=== PATIENT | female | born 1955 | race Caucasian/White ===

== ENCOUNTER → 2016-06-20 | Outpatient (CLI) | payer BC | END | disposition home or self-care (01) | LOC: C.RDSM 14:01 | PROVIDERS: ATTEND Family Medicine | DX: M17.9 Osteoarthritis of knee, unspecified (principal) ==

== ENCOUNTER → 2016-10-28 | Outpatient (CLI) | payer BC ==
--- NOTE | 2016-11-01 14:57 | MAMMOGRAPHY REPORT ---
BILATERAL DIGITAL SCREENING MAMMOGRAM TOMOSYNTHESIS WITH CAD: 10/28/2016 CLINICAL HISTORY: Routine screening. Patient has no complaints. TECHNIQUE: Breast tomosynthesis in addition to standard 2D mammography was performed. Current study was also evaluated with a Computer Aided Detection (CAD) system. COMPARISON: Comparison is made to exams dated: 10/14/2015 mammogram - [facility], 11/28/2014 mammogram, 07/22/2013 mammogram, 07/20/2012 mammogram, 07/11/2011 mammogram, and 06/18/2010 [facility] mogram. BREAST COMPOSITION: There are scattered areas of fibroglandular density in both breasts. FINDINGS: No suspicious masses, calcifications, or areas of architectural distortion are noted in e ither breast. There has been no significant interval change compared to prior exams. There are stab le post surgical changes from bilateral reduction mammoplasty. Bilateral asymmetries and scattered bilateral benign appearing calcifications are stable compared to prior exams. IMPRESSION: ACR BI-RADS CATEGORY 2: BENIGN There is no mammographic evidence of malignancy. A 1 year screening mammogram is recommended. The p atient will receive written notification of the results. Approximately 10% of breast cancers are not detected with mammography. A negative mammographic repor t should not delay biopsy if a clinically suggestive mass is present. Jayshree Cruz M.D. /:10/28/2016 15:45:34 Sample Tester Grinder: Alec SHERWOOD(R)(M), [facility] letter sent: Normal 1/2 BI-RADS Code: ACR BI-RADS Category 2: Benign
== END | disposition home or self-care (01) ==
LOC: C.MAMM 15:16
PROVIDERS: ATTEND Obstetrics & Gynecology
DX: Z12.31 Encounter for screening mammogram for malignant neoplasm of breast (principal)

== ENCOUNTER 2017-08-16 18:28 | Emergency (ER) | payer BC, OTHER ==
[~2017-08-16] VITALS: Ht 157.5 cm; Wt 71.0 kg
[2017-08-16 18:35] VITALS: TEMP 36.5; Ht 157.5 cm; Wt 71.0 kg
--- NOTE | 2017-08-16 19:43 | DIAGNOSTIC IMAGING REPORT ---
CT SCAN OF THE BRAIN WITHOUT IV CONTRAST CLINICAL HISTORY: Fall. Head injury. COMPARISON STUDY: No priors. TECHNIQUE: Unenhanced axial CT scan of the brain is performed from the vertex to the skull base. A dose lowering technique was utilized adhering to the principles of ALARA. CT DOSE: 1002.43 mGy.cm FINDINGS: Brain parenchyma: There are age-related involutional changes noting mild subcortical and periventricular microangiopathic change. There is no hemorrhage, mass effect, or evidence of acute territorial ischemia by CT criteria. Morales-white matter is preserved. No extra-axial fluid collection is seen. Ventricles, sulci, cisterns: Prominent secondary to involutional change. Intracranial vasculature: There is mild atherosclerotic calcification of the cavernous carotid. Calvarium: The skeletal structures are osteopenic. No depressed calvarial fracture is seen. Sinuses and mastoids: The visualized paranasal sinuses are clear. The mastoid air cells are well pneumatized. Orbits: The bony orbits are grossly intact. IMPRESSION: There is no hemorrhage, mass effect, or evidence of acute territorial ischemia by CT criteria. Electronically signed by: Tereso Gaytan M.D. 08/16/2017 7:42 PM Dictated Date/Time: 08/16/2017 7:40 PM
--- NOTE | 2017-08-16 19:59 | DIAGNOSTIC IMAGING REPORT ---
CT SCAN OF THE CERVICAL SPINE CLINICAL HISTORY: Fall. Trauma. COMPARISON STUDY: No priors. TECHNIQUE: CT scan of the cervical spine is performed from the skull base to the upper thoracic spine. Images are reviewed in the axial, sagittal, and coronal planes. IV contrast was not administered for this examination. A dose lowering technique was utilized adhering to the principles of ALARA. CT DOSE: Reported separately under the concurrently performed CT scan of the brain. FINDINGS: Skeletal structures: The skeletal structures are osteopenic. There is no evidence of fracture or subluxation involving the cervical spine. Vertebral body height and alignment are maintained. There is straightening of the cervical lordosis with mild reversal centered at C4-C5. Anterior osteophytes are seen throughout. The odontoid process and lateral masses are intact. The atlantoaxial articulation is preserved noting mild productive degenerative change. The spinous processes appear intact. There is mild to moderate multilevel cervical spondylosis. Uncovertebral and facet arthropathy contribute to neural foraminal stenosis at several levels. Intervertebral discs: There is moderate to advanced disc space narrowing seen from C3 -C4 through C6-C7. There is significant associated endplate sclerosis at these levels. Central canal: Posterior disc osteophyte complexes from C3-C4 through C6-C7 likely contribute to multilevel acquired compromise of the central canal. Soft tissues: The prevertebral and paraspinous soft tissues are within normal limits. Calvarium: The visualized calvarium at the skull base appears intact. Brain parenchyma: Partially visualized brain parenchyma the skull base is within normal limits. Sinuses and mastoids: The visualized paranasal sinuses are clear. The mastoid air cells are well pneumatized. Lung apices: Clear as visualized. IMPRESSION: 1. There is no evidence of fracture or subluxation involving the cervical spine. 2. Osteopenia and cervical spondylosis as above. Electronically signed by: Tereso Gaytan M.D. 08/16/2017 7:58 PM Dictated Date/Time: 08/16/2017 7:55 PM
--- NOTE | 2017-08-16 20:10 | DIAGNOSTIC IMAGING REPORT ---
PA CHEST WITH RIGHT-SIDED RIB SERIES CLINICAL HISTORY: Fall with right-sided chest wall pain. FINDINGS: A PA chest radiograph with 4 additional views may right-sided rib series is obtained. No prior studies are available for comparison at the time of dictation. The there is atherosclerotic calcification of the thoracic aorta. The pulmonary vasculature is noncongested. Nonspecific interstitial thickening is likely chronic. No airspace consolidation or large pleural effusion is identified. No pneumothorax is seen. The skeletal structures are osteopenic. There is no radiographic evidence of acute/distracted right-sided rib fracture on the rib series. The remainder of the bony thorax is grossly intact. Cholecystectomy clips are noted in the right upper quadrant. IMPRESSION: 1. The lungs are clear. 2. There is no radiographic evidence of right-sided rib fracture on the rib series as clinically queried. Electronically signed by: Tereso Gaytan M.D. 08/16/2017 8:09 PM Dictated Date/Time: 08/16/2017 8:07 PM
[2017-08-16] MEDS ORDERED: DIPHTHERIA/TETANUS/PERTUSSIS 0.5 ML SYR/VIAL IM. ONE (20:15)
--- NOTE | 2017-08-16 20:17 | EMERGENCY ROOM VISIT NOTE ---
History First contact with patient: 18:39 Chief Complaint: HEAD INJURY (MINOR) Stated Complaint: HEAD,RIB,KNEE INJURY History of Present Illness The patient is a 62 year old female who presents to the Emergency Room via private vehicle with complaints of "head, rib, knee injury" the patient states that just prior to arrival she was doing running sprints, when she accidentally tripped and fell landing on her right side. She states that this was at a local exercise facility. This occurred around 4-5 PM. She states that there was no loss of consciousness but however she now has pain just above the right eye, headache, right hand pain, and bilateral knee pain as well as right anterior rib pain. She rates her overall pain is a 7/10. It is worse when she leans forward. Only alleviating factor is aspirin that she took prior to arrival. She has had no vomiting. No hemoptysis. No trouble breathing. Review of Systems A complete 6-point Review of Systems was discussed with the patient, with pertinent positives and negatives listed in the History of Present Illness. All remaining Review of Systems questions can be considered negative unless otherwise specified. Past Medical/Surgical History No pertinent Social History Smoking Status: Never Smoker Pt. lives locally Physical Exam Vital Signs Date Time Temp Pulse Resp B/P (MAP) Pulse Ox O2 Delivery O2 Flow Rate FiO2 08/16/17 20:35 53 17 135/75 98 08/16/17 18:35 36.5 58 18 179/89 99 Room Air Physical Exam VITAL SIGNS - Vital signs and nursing notes were reviewed. GENERAL - 62-year-old female appearing her stated age who is in no acute distress. Communicates well with provider and answers questions appropriately. SKIN - Without rashes. Small abrasion to L and R anterior knee. Also small bruising to the palmar aspect of the patient's right proximal hand as well as just above her right eye HEAD - NC/AT. No hu signs or raccoon's eyes. EYES - PERRL with EOMI bilaterally. Sclera anicteric. No hyphema. EARS - No deformities of external structures noted on gross examination bilaterally. No hemotympanum. NOSE - Midline and without cyanosis. No epistaxis or purulent drainage noted. Septum midline without deviation or septal hematoma noted. MOUTH/OROPHARYNX - Without perioral cyanosis. NECK - Neck with FROM. No C-spine tenderness. LUNGS - Chest wall symmetric without accessory muscle use, intercostals retractions, or central cyanosis. Normal vesicular breath sounds CTA B/L. No wheezes, rales, or rhonchi appreciated. CARDIAC - RRR with S1/S2. No murmur, rubs, or gallops appreciated. Minimal tenderness to the right anterior ribs. ABDOMEN - Abdominal contour normal without pulsations or visible masses. BS normoactive all four quadrants. No tenderness, palpable masses, hepatosplenomegaly, or ascites noted. EXTREMITIES - No clubbing or peripheral cyanosis. No pretibial edema present. +5 /5 strength noted in UE/LE bilaterally. NEUROLOGIC - Cranial nerves II through XII grossly intact. Sensory intact to light touch throughout. PSYCH - A&O, and cooperates fully with examiner. Pt is very pleasant and interacts well with examiner. Medical Decision & Procedures ER Provider Diagnostic Interpretation: CT SCAN OF THE BRAIN WITHOUT IV CONTRAST CLINICAL HISTORY: Fall. Head injury. COMPARISON STUDY: No priors. TECHNIQUE: Unenhanced axial CT scan of the brain is performed from the vertex to the skull base. A dose lowering technique was utilized adhering to the principles of ALARA. CT DOSE: 1002.43 mGy.cm FINDINGS: Brain parenchyma: There are age-related involutional changes noting mild subcortical and periventricular microangiopathic change. There is no hemorrhage, mass effect, or evidence of acute territorial ischemia by CT criteria. Morales-white matter is preserved. No extra-axial fluid collection is seen. Ventricles, sulci, cisterns: Prominent secondary to involutional change. Intracranial vasculature: There is mild atherosclerotic calcification of the cavernous carotid. Calvarium: The skeletal structures are osteopenic. No depressed calvarial fracture is seen. Sinuses and mastoids: The visualized paranasal sinuses are clear. The mastoid air cells are well pneumatized. Orbits: The bony orbits are grossly intact. IMPRESSION: There is no hemorrhage, mass effect, or evidence of acute territorial ischemia by CT criteria. Electronically signed by: Tereso Gaytan M.D. 08/16/2017 7:42 PM Dictated Date/Time: 08/16/2017 7:[address] SCAN OF THE CERVICAL SPINE CLINICAL HISTORY: Fall. Trauma. COMPARISON STUDY: No priors. TECHNIQUE: CT scan of the cervical spine is performed from the skull base to the upper thoracic spine. Images are reviewed in the axial, sagittal, and coronal planes. IV contrast was not administered for this examination. A dose lowering technique was utilized adhering to the principles of ALARA. CT DOSE: Reported separately under the concurrently performed CT scan of the brain. FINDINGS: Skeletal structures: The skeletal structures are osteopenic. There is no evidence of fracture or subluxation involving the cervical spine. Vertebral body height and alignment are maintained. There is straightening of the cervical lordosis with mild reversal centered at C4-C5. Anterior osteophytes are seen throughout. The odontoid process and lateral masses are intact. The atlantoaxial articulation is preserved noting mild productive degenerative change. The spinous processes appear intact. There is mild to moderate multilevel cervical spondylosis. Uncovertebral and facet arthropathy contribute to neural foraminal stenosis at several levels. Intervertebral discs: There is moderate to advanced disc space narrowing seen from C3 -C4 through C6-C7. There is significant associated endplate sclerosis at these levels. Central canal: Posterior disc osteophyte complexes from C3-C4 through C6-C7 likely contribute to multilevel acquired compromise of the central canal. Soft tissues: The prevertebral and paraspinous soft tissues are within normal limits. Calvarium: The visualized calvarium at the skull base appears intact. Brain parenchyma: Partially visualized brain parenchyma the skull base is within normal limits. Sinuses and mastoids: The visualized paranasal sinuses are clear. The mastoid air cells are well pneumatized. Lung apices: Clear as visualized. IMPRESSION: 1. There is no evidence of fracture or subluxation involving the cervical spine. 2. Osteopenia and cervical spondylosis as above. Electronically signed by: Tereso Gaytan M.D. 08/16/2017 7:58 PM Dictated Date/Time: 08/16/2017 7:55 PM [~ rep ct add3]] PA CHEST WITH RIGHT-SIDED RIB SERIES CLINICAL HISTORY: Fall with right-sided chest wall pain. FINDINGS: A PA chest radiograph with 4 additional views may right-sided rib series is obtained. No prior studies are available for comparison at the time of dictation. The there is atherosclerotic calcification of the thoracic aorta. The pulmonary vasculature is noncongested. Nonspecific interstitial thickening is likely chronic. No airspace consolidation or large pleural effusion is identified. No pneumothorax is seen. The skeletal structures are osteopenic. There is no radiographic evidence of acute/distracted right-sided rib fracture on the rib series. The remainder of the bony thorax is grossly intact. Cholecystectomy clips are noted in the right upper quadrant. IMPRESSION: 1. The lungs are clear. 2. There is no radiographic evidence of right-sided rib fracture on the rib series as clinically queried. Electronically signed by: Tereso Gaytan M.D. 08/16/2017 8:09 PM Dictated Date/Time: 08/16/2017 8:07 PM Medications Administered Medications (Trade) Dose Ordered Sig/Ariel Route Start Time Stop Time Status Last Admin Dose Admin Diphtheria/ Pertussis/Tetanus Vacc (Adacel Inj) 0.5 ml ONCE ONCE IM. 08/16/17 20:15 08/16/17 20:16 DC 08/16/17 20:30 0.5 ML ED Course Patient was seen and evaluated in room D6. Imaging was performed. No acute fracture, dislocation or emergent process. Regions were bandaged. Tetanus immunization was given. She declined pain medication. She will follow with the family doctor. Medical Decision Patient was seen and evaluated as above. She presents to the status post fall. GCS 15. Review was performed of nursing notes and vital signs. After obtaining a thorough history and physical examination the above work up was performed. CT scan was obtained of the patient's head and C-spine. X-ray was then obtained of the chest, right ribs. She respectfully declined x-rays of the knees and hand. CT scans negative. X-ray negative. She was educated upon incidentals. She is to follow with the family doctor. I suspect contusion multiple sites and a possible concussion. She was given ice and the wounds were bandaged. She appears stable for outpatient management. She was given her tetanus immunization here. The patient was educated upon management, had questions answered prior to discharge, and was discharged home in good condition. In the evaluation and treatment of this patient, the following differential diagnoses were considered: Concussion, Contrecoup Injury, Brain Tumor, Depression, Encephalitis, Hypothyroidism, Meningitis, CVA, TIA, Migraine, Cluster Headache, Intracranial Abnormality, Intracranial Hemorrhage, Subdural Hematoma, Subarachnoid Hemorrhage, Hydrocephalus, Musculoskeletal Strain, Discitis, Cervical Spine Fracture, Cervical Spine Dislocation, Cervical Spine Subluxation, Cervical Spondylosis, Fibromyalgia, Osteoarthritis, Polymyalgia Rheumatica, Psychogenic Pain Disorder, Tumor of Soft Tissue or Spine, Wrist Sprain, Wrist Fracture, Wrist Dislocation, Scapholunate Dissociation, Carpal Fracture, Metacarpal Fracture, Radial Styloid Process Fracture, Ulnar Styloid Process Fracture, or Carpal Tunnel Syndrome, Patellar Fracture, Tibial Plateau Fracture, Distal Femur Fracture, ACL Injury, PCL Injury, Collateral Ligament Injury, Pes Anserine Bursitis, Maisonneuve Fracture. Impression Primary Impression: Fall Additional Impressions: Closed head injury Rib pain on right side Hand pain Knee pain, bilateral Abrasion Departure Information Dispostion Home / Self-Care Condition GOOD Referrals Yoko Kumar C.R.N.P. (PCP) Patient Instructions My [facility] Additional Instructions You have been treated in the Emergency Department for a fall, head injury, hand pain, right frontal rib pain and knee pain. CT Scan of your head/brain/neck demonstrated no acute bleeding or other emergent abnormalities, however I do recommend follow up with your family doctor regarding the other findings as we discussed. This does not completely rule out the risk for future damage to the brain. Please call your family doctor first thing tomorrow morning to schedule follow-up. For pain control, you can use the following [id number] medicines: - Regular strength (325mg/tab) Tylenol (acetaminophen) 2 tabs every 4-6 hours as needed. Do not exceed 12 tablets in a 24 hour period. Avoid taking more than 3 grams (3000 mg) of Tylenol per day. This includes any other sources of acetaminophen you may take on a regular basis. - Regular strength (200 mg/tab) Advil (ibuprofen) 1-2 tabs every 4-6 hours as needed. Do not exceed a dose of 3200 mg per day. You should schedule a follow-up appointment in 2-3 days with your Primary Care Provider or established Neurologist for further evaluation and treatment of your Headache. For the skin, please keep the areas clean and apply antibiotic ointment. you may ice these regions. Return to the Emergency Department if your current symptoms worsen despite treatment course outlined above, or if you develop any of the following symptoms : intractable pain despite aforementioned treatment course, visual disturbances , loss of vision, unilateral weakness or facial drooping, slurring of speech, loss of coordination, or loss of consciousness. Problem Qualifiers
[2017-08-16 20:35] VITALS: BP 135/75; PULSE 53; O2SAT 98
== END 2017-08-16 20:35 | disposition home or self-care (01) ==
LOC: C.EDB 18:31 → C.EDD 20:35
DX: S09.90XA Unspecified injury of head, initial encounter (principal); R07.89 Other chest pain; S00.81XA Abrasion of other part of head, initial encounter; S80.211A Abrasion, right knee, initial encounter; S80.212A Abrasion, left knee, initial encounter; S60.511A Abrasion of right hand, initial encounter; W18.39XA Other fall on same level, initial encounter; Y92.89 Other specified places as the place of occurrence of the external cause; Y93.A3 Activity, aerobic and step exercise; M85.88 Other specified disorders of bone density and structure, other site; M47.892 Other spondylosis, cervical region; M79.641 Pain in right hand; M25.561 Pain in right knee; M25.562 Pain in left knee